=== PATIENT | male | born 1990 | race Two or more races ===

== ENCOUNTER 2019-10-15 16:50 | Emergency (ER) | payer SELFPAY ==
[~2019-10-15] VITALS: Ht 182.9 cm; Wt 115.7 kg
[2019-10-15 16:59] VITALS: BP 122/59
[2019-10-15] MEDS ORDERED: DexAMETHasone SOD PHOS 10MG/1ML VIAL INJ IM ONE (19:00)
[2019-10-15] MEDS ORDERED: ACETAMINOPHEN/CODEINE#3 (300/30mg) TAB PO ONE (19:00)
[2019-10-15] MEDS ORDERED: cefTRIAXone SOD 1,000 MG VL IM ONE (19:00)
== END 2019-10-15 19:37 | disposition home or self-care (01) ==
LOC: ER 16:57
DX: J06.9 Acute upper respiratory infection, unspecified (principal); H66.91 Otitis media, unspecified, right ear
CPT/HCPCS: 71046; 96372; 99283; J0696; J1100

== ENCOUNTER 2020-05-15 10:09 | Inpatient (IN) | payer SELFPAY ==
[~2020-05-15] VITALS: Ht 182.9 cm; Wt 115.7 kg
[2020-05-15] MEDS ORDERED: LIDOCAINE W/ EPINEPHRINE 2% INJ 20ML VIAL IJ ONE (11:30)
[2020-05-15 11:35] LABS: Urine Bacteria NONE SEEN /hpf (None Seen); Urine Blood 1+ /uL (Negative); Urine Specific Gravity 1.033 (1.001-1.035); Urine WBC 7 /hpf (0 - 3)
[2020-05-15] MEDS ORDERED: PROMETHAZINE HCL 25 MG/ML 1ML IV ONE (12:00)
[2020-05-15] MEDS ORDERED: KETOROLAC TROMETH 30 MG/ML 1ML VIAL IV ONE (12:00)
[2020-05-15] MEDS ORDERED: SODIUM CHLORIDE 0.9% 1,000 ML IV ONE ×2 (12:00→13:49)
[2020-05-15] MEDS ORDERED: cefTRIAXone 1GM/50ML D5W 50 ML IV ONE (12:00)
[2020-05-15] MEDS ORDERED: cefTRIAXone SOD 1,000 MG VL ONE (12:01)
[2020-05-15 13:36] LABS: Basophils # (auto) 0.1 10 ^3/uL (0-0.2); Basophils % (auto) 1.2 % (0.0-2.0); Eosinophils # (auto) 0.1 10 ^3/uL (0-0.8); Eosinophils % (auto) 1.8 % (0.0-7.0); Hemoglobin 15.7 g/dL (13.5-17.5); Lymphocytes # (auto) 1.7 10 ^3/uL (0.4-5.4); Lymphocytes % (auto) 33.9 % (10.0-50.0); Mean Corpuscular Hgb Conc. 34.2 g/dL (32.0-36.0); Monocytes # (auto) 0.8 10 ^3/uL (0-1.3); Monocytes % (auto) 15.9 % (0.0-12.0); Neutrophils # (auto) 2.3 10 ^3/uL (1.6-8.6); Neutrophils % (auto) 47.2 % (37.0-80.0); Nucleated Red Blood Cells % 0.6 %; Platelet Count (auto) 202 10^3/uL (140-450); Red Blood Cells 5.41 10^6/uL (4.5-5.90); Red Cell Distribution Width 13.7 % (11.8-14.3); White Blood Cell 4.9 10^3/uL (4.4-10.8)
[2020-05-15 13:39] LABS: Calcium 8.2 mg/dL (8.5-10.1); Potassium 3.6 mmol/L (3.5-5.1)
[2020-05-15 13:42] LABS: BUN/Creatinine Ratio 12.5
[2020-05-15] MEDS ORDERED: InsuLIN REG 1unit/0.01ml Soln (100units/ml) IV ONE (14:00)
[2020-05-15] MEDS ORDERED: MORPHINE SULF INJ 2 MG/ML SYRINGE 1ML IV PRN (14:15)
[2020-05-15] MEDS ORDERED: ACETAMINOPHEN 325 MG TAB PO PRN (14:15)
[2020-05-15] MEDS ORDERED: ALUM & MAG HYDROX-SIMETH LIQ(MAALOX) 30 ML PO PRN (14:15)
[2020-05-15] MEDS ORDERED: DEXTROSE (50%) 50ML SYRG IV PRN (14:15)
[2020-05-15] MEDS ORDERED: LISINOPRIL 10 MG TAB PO ONE (14:15)
[2020-05-15] MEDS ORDERED: NITROGLYCERIN 0.4 MG SL TAB SL PRN (14:15)
[2020-05-15] MEDS ORDERED: HYDROcodone-ACET 5/325MG TAB PO PRN (14:15)
[2020-05-15] MEDS ORDERED: LORazepam 0.5 MG TAB PO PRN (14:15)
[2020-05-15] MEDS ORDERED: ASPirin 81 mg TAB PO ONE (14:15)
[2020-05-15] MEDS ORDERED: INSULIN LANTUS (GLARGINE) 1 /0.01ml (100units/ml) SC ONE (14:15)
[2020-05-15] MEDS ORDERED: DOCUSATE SOD 100 MG CAP PO PRN (14:15)
[2020-05-15] MEDS ORDERED: METOCLOPRAMIDE HCL 5MG/ml INJ 2ml VIAL IV PRN (14:15)
[2020-05-15] MEDS: SODIUM CHLORIDE 0.9% 1,000 ML IV SCH (14:56)
[2020-05-15 15:17] LABS: Albumin 3.2 g/dL (3.4-5.0); Calcium 8.8 mg/dL (8.5-10.1); Potassium 3.9 mmol/L (3.5-5.1)
[2020-05-15 15:17] LABS: Cholesterol 106 mg/dL (< 200)
[2020-05-15 15:21] LABS: HDL Cholesterol 18 mg/dL (40-59); Triglycerides 405 mg/dL (< 150)
[2020-05-15 15:21] LABS: BUN/Creatinine Ratio 13.7; Bilirubin, Total 0.6 mg/dL (0.2-1.0); Total Protein 6.8 g/dL (6.4-8.2)
--- NOTE | 2020-05-15 15:45 | NUR ---
Telemetry admit from ER LUIS ELIAS admitted to Telemetry unit after NO SBAR received. Patient oriented to NATALI MANDEL,RN primary RN, unit, room, bed, and unit policies regarding patient care and visiting hours. Patient now on continuous telemetry monitoring, tele box #44 and telemetry reading on arrival to unit is NSR 88 PBM. Patient weighed by bedscale and encouraged to call if they need something. Bed in lowest/locked position, bed rails up x2, call light within reach. All questions and concerns addressed, patient verbalized understanding.
[2020-05-15] MEDS ORDERED: METF-370 PO (16:26)
[2020-05-15] MEDS: ACCU-CHEK COMFORT CURVE STRIP VI SCH (17:08)
[2020-05-15] MEDS: InsuLIN REG 1unit/0.01ml Soln (100units/ml) SC SCH (17:10)
[2020-05-15] MEDS ORDERED: GLIP5TAB12 PO (17:13)
[2020-05-15 17:28] LABS: Urine Bacteria FEW /hpf (None Seen); Urine Blood Negative /uL (Negative); Urine Specific Gravity 1.047 (1.001-1.035); Urine WBC 87 /hpf (0 - 3)
[2020-05-15 17:43] LABS: Alcohol, Urine < 3.0 mg/dL (0-10); Amphetamine Screen, Urine NEGATIVE (NEGATIVE); Barbiturate Scree,Urine NEGATIVE (NEGATIVE); Benzodiazephine Screen, Urine NEGATIVE (NEGATIVE); Cannabinoid Screen, Urine NEGATIVE (NEGATIVE); Cocaine Screen, Urine NEGATIVE (NEGATIVE); Opiate Scree,Urine NEGATIVE (NEGATIVE); Phencyclidine Screen, Urine NEGATIVE (NEGATIVE)
[2020-05-15] MEDS: ATORVASTATIN 20 MG TAB PO SCH (22:00)
--- NOTE | 2020-05-15 23:45 | NUR ---
CRITICAL BLOOD SUGAR The patient's 0000 blood sugar is 492 mg/dl. 15 units of insulin was given per moderate insulin scale. Hospitalist has been paged.
--- NOTE | 2020-05-16 00:10 | NUR ---
HOSPITALIST PAGED BACK Notified Dr. De León of the patient's blood sugar of 492 mg/dl. Reevaluated glucose is 386 mg/dl. No new order has been received.
[2020-05-16] MEDS: SODIUM CHLORIDE 0.9% 1,000 ML IV SCH ×2 (00:15→12:30)
[2020-05-16 05:00] VITALS: BP 120/64
[2020-05-16] MEDS: ACCU-CHEK COMFORT CURVE STRIP VI SCH ×4 (06:00→18:21)
[2020-05-16] MEDS: InsuLIN REG 1unit/0.01ml Soln (100units/ml) SC SCH ×4 (06:14→18:21)
[2020-05-16] MEDS: MORPHINE SULF INJ 2 MG/ML SYRINGE 1ML IV PRN ×2 (06:15→12:29)
[2020-05-16 09:00] VITALS: BP 121/67
[2020-05-16] MEDS: cefTRIAXone 1GM/50ML D5W 50 ML IV SCH (09:00)
--- NOTE | 2020-05-16 09:19 | NUR ---
Opening Shift Note Assumed care of patient, awake and alert. No S/S of distress/SOB or pain. Instructed on POC and to call for assistance PRN, bed is locked and in lowest position , side rails up x2 , will continue to monitor for changes Q1hr and PRN.
[2020-05-16] MEDS ORDERED: LISINOPRIL 20 MG TAB PO SCH (10:00)
[2020-05-16] MEDS: ATORVASTATIN 20 MG TAB PO SCH (10:42)
[2020-05-16] MEDS: ENOXAPARIN SOD 40 MG/0.4 ML SYRINGE SC SCH (11:27)
[2020-05-16] MEDS: ASPirin 81 mg TAB PO SCH (12:29)
--- NOTE | 2020-05-16 12:48 | NUR ---
Doctor Stefan Aviles at bedside assessed penile region , ice pack administered for 30 minutes on 30 minutes off. Will continue to monitor Q1h and PRN
[2020-05-16 13:00] VITALS: BP 116/66
[2020-05-16 16:23] VITALS: BP 111/64
[2020-05-16] MEDS: CEPHALEXIN 250 MG CAP PO SCH (18:18)
--- NOTE | 2020-05-16 19:00 | NUR ---
Opening Shift Note Assumed care of patient, awake and alert. No S/S of distress/SOB or pain. Instructed on POC and to call for assist PRN, will continue to monitor for changes Q1hr and PRN.
[2020-05-16] MEDS ORDERED: INSULIN LANTUS (GLARGINE) 1 /0.01ml (100units/ml) SC SCH (22:00)
[2020-05-16 22:11] VITALS: BP 128/76
[2020-05-17] MEDS: CEPHALEXIN 250 MG CAP PO SCH ×3 (01:00→12:08)
[2020-05-17] MEDS: SODIUM CHLORIDE 0.9% 1,000 ML IV SCH (02:03)
[2020-05-17 05:19] VITALS: BP_SYST 74
[2020-05-17 05:19] LABS: Basophils # (auto) 0 10 ^3/uL (0-0.2); Basophils % (auto) 0.9 % (0.0-2.0); Eosinophils # (auto) 0.2 10 ^3/uL (0-0.8); Eosinophils % (auto) 3.1 % (0.0-7.0); Hematocrit 44.4 % (41.0-53.0); Hemoglobin 15.4 g/dL (13.5-17.5); Lymphocytes # (auto) 2.1 10 ^3/uL (0.4-5.4); Lymphocytes % (auto) 39.2 % (10.0-50.0); Mean Corpuscular Hemoglobin 29.1 pg (28.0-32.0); Mean Corpuscular Hgb Conc. 34.6 g/dL (32.0-36.0); Mean Corpuscular Volume 84.2 fL (80.0-100.0); Monocytes # (auto) 0.8 10 ^3/uL (0-1.3); Monocytes % (auto) 14.9 % (0.0-12.0); Neutrophils # (auto) 2.2 10 ^3/uL (1.6-8.6); Neutrophils % (auto) 41.9 % (37.0-80.0); Nucleated Red Blood Cells % 0.9 %; Platelet Count (auto) 206 10^3/uL (140-450); Red Blood Cells 5.28 10^6/uL (4.5-5.90); Red Cell Distribution Width 13.3 % (11.8-14.3); White Blood Cell 5.2 10^3/uL (4.4-10.8)
[2020-05-17 05:38] LABS: Calcium 8.4 mg/dL (8.5-10.1); Magnesium 2.3 mg/dL (1.6-2.6); Potassium 3.5 mmol/L (3.5-5.1)
[2020-05-17 05:43] LABS: BUN/Creatinine Ratio 15.1; Bilirubin, Total 0.5 mg/dL (0.2-1.0); Total Protein 6.9 g/dL (6.4-8.2)
[2020-05-17] MEDS: InsuLIN REG 1unit/0.01ml Soln (100units/ml) SC SCH ×3 (06:00→11:25)
[2020-05-17] MEDS: ACCU-CHEK COMFORT CURVE STRIP VI SCH ×3 (06:00→11:23)
[2020-05-17 08:00] VITALS: BP 108/61
[2020-05-17] MEDS: cefTRIAXone 1GM/50ML D5W 50 ML IV SCH (09:23)
[2020-05-17] MEDS: ENOXAPARIN SOD 40 MG/0.4 ML SYRINGE SC SCH (09:24)
[2020-05-17] MEDS: ASPirin 81 mg TAB PO SCH (09:24)
[2020-05-17] MEDS ORDERED: INSLANTI SC (10:29)
[2020-05-17] MEDS ORDERED: METF-372 PO (10:29)
[2020-05-17] MEDS ORDERED: CEPH-37 PO (10:35)
[2020-05-17 12:31] VITALS: BP 108/61
[2020-05-17 13:00] VITALS: BP 126/77
--- NOTE | 2020-05-17 14:01 | NUR ---
ss consult Per ss consult needs PCP. Mercedes Anaya to see patient for PCP today. Addendum: 05/17/20 at 1402 by Mercedes MYERS Amended: Links added.
--- NOTE | 2020-05-17 14:35 | NUR ---
DISCHARGE HOME Discharge instructions given as ordered. Encourage to follow up with [facility] urgent care as instructed. All questions and concerns addressed. Patient verbalized understanding. Diabetes education was provided in depth with patient. Medication reconciliation form completed and copy given to patient. IV removed with catheter intact, pressure dressing applied. Telemetry unit returned to ICU. Patient taken to [facility] via ambulation with all personal belongings, accompanied by staff. No distress noted at time of departure.
== END 2020-05-17 14:35 | disposition home or self-care (01) | DRG 728 ==
LOC: ER 10:09 → TELE-CENTR 10:10
PROVIDERS: ADMIT Hospitalist; ATTEND Internal Medicine
DX: N47.2 Paraphimosis (principal); E66.01 Morbid (severe) obesity due to excess calories; E78.5 Hyperlipidemia, unspecified; I10 Essential (primary) hypertension; N47.1 Phimosis; E11.9 Type 2 diabetes mellitus without complications; N48.22 Cellulitis of corpus cavernosum and penis; Z91.14 Patient's other noncompliance with medication regimen; Z91.19 Patient's noncompliance with other medical treatment and regimen; Z68.34 Body mass index [BMI] 34.0-34.9, adult
CPT/HCPCS: 36415; 36600; 76870; 80048; 80053; 80061; 80307; 81001; 82805; 82962; 83036; 83735; 83930; 84484; 85025; 87040; 87086; G0378; J0696; J1815; J1885